=== PATIENT | male | born 1970 | race Caucasian/White ===

== ENCOUNTER 2019-07-25 07:28 | Emergency (ER) | payer OTHER ==
[~2019-07-25] VITALS: Ht 182.9 cm; Wt 90.9 kg
[~2019-07-25 07:28] MED LIST: IBUP-1542 PO
[2019-07-25 07:36] VITALS: Ht 182.9 cm; Wt 90.9 kg
[2019-07-25] MEDS ORDERED: KETOROLAC 15 MG INJ IV STA (09:48)
[2019-07-25 12:20] VITALS: BP 117/72; PULSE 72; RESP 18
== END 2019-07-25 12:27 | disposition home or self-care (01) ==
LOC: E/R 07:28
DX: R07.9 Chest pain, unspecified (principal); R20.2 Paresthesia of skin; R40.2142 Coma scale, eyes open, spontaneous, at arrival to emergency department; R40.2252 Coma scale, best verbal response, oriented, at arrival to emergency department; R40.2362 Coma scale, best motor response, obeys commands, at arrival to emergency department
CPT/HCPCS: 36415; 71045; 80048; 83880; 84484; 85025; 85610; 93005; 96374; 99285; J1885